=== PATIENT | male | born 1960 | race Caucasian/White ===

== ENCOUNTER 2020-10-05 16:22 | Inpatient (IN) | payer OTHER ==
[2020-10-05 16:57] VITALS: BMI 25.1
[2020-10-05] MEDS ORDERED: MAG HYDROX/AL HYDROX/SIMETH 30 ML UNIT-DOSE CUP PO PRN (17:27)
[2020-10-05] MEDS ORDERED: chlordiazePOXIDE HCL 25 MG CAPSULE PO PRN (17:27)
[2020-10-05] MEDS ORDERED: BISMUTH SUBSALICYLATE 524 MG/30 ML UD PO PRN (17:27)
[2020-10-05] MEDS ORDERED: METHOCARBAMOL 500 MG TABLET PO PRN (17:27)
[2020-10-05] MEDS ORDERED: MENTHOL/PHENOL 1 EACH UD MM PRN (17:27)
[2020-10-05] MEDS ORDERED: ONDANSETRON *ODT* 4 MG TABLET SL PRN (17:27)
[2020-10-05] MEDS ORDERED: MAGNESIUM HYDROX 2400MG/30ML ORAL SUSPENSION 30 ML CUP PO PRN (17:27)
[2020-10-05] MEDS ORDERED: ACETAMINOPHEN 325 MG TABLET (FP) PO PRN ×2 (17:27)
[2020-10-05] MEDS ORDERED: NICOTINE POLACRILEX 2 MG GUM BUC PRN (17:27)
[2020-10-05] MEDS ORDERED: IBUPROFEN 400 MG TABLET (FP) PO PRN (17:27)
[2020-10-05] MEDS ORDERED: MAGNESIUM CITRATE 300 ML BOTTLE PO PRN (17:27)
[2020-10-05] MEDS: chlordiazePOXIDE HCL 25 MG CAPSULE PO SCH ×2 (19:15→22:36)
[2020-10-05] MEDS: hydrOXYzine PAMOATE 25 MG CAPSULE (FP) PO SCH ×2 (19:32→22:36)
[2020-10-05] MEDS: THIAMINE HCL 100 MG TABLET (FP) PO SCH (22:36)
[2020-10-05] MEDS: MELATONIN 5 MG TABLETS PO SCH (23:39)
[2020-10-05] MEDS: INSULIN SLIDING SCALE (NOVOLOG) 1 VIAL SQ SCH (23:40)
[2020-10-06] MEDS: hydrOXYzine PAMOATE 25 MG CAPSULE (FP) PO SCH ×5 (05:31→23:15)
[2020-10-06] MEDS: chlordiazePOXIDE HCL 25 MG CAPSULE PO SCH ×4 (05:31→22:28)
[2020-10-06] MEDS: INSULIN SLIDING SCALE (NOVOLOG) 1 VIAL SQ SCH ×4 (06:14→22:33)
[2020-10-06] MEDS: METHADONE HCL 40 MG DISPERSABLE TABLET PO SCH (10:28)
[2020-10-06] MEDS: PRENATAL VITAMINS W/ FOLIC ACID TABLET (FP) PO SCH (10:29)
[2020-10-06 10:39] LABS: HEMATOCRIT 42.5 % (35.4-49); HEMOGLOBIN 14.3 GM/dL (11.7-16.9); MCH 31.7 pg (25.7-33.7); MCHC 33.6 g/dl (32.0-35.9); MEAN CELL VOLUME 94.2 fl (80-96); MEAN PLT VOLUME 9.3 fl (7.5-11.1); PLATELET COUNT 180 K/MM3 (134-434); RBC 4.51 M/mm3 (4.00-5.60); RDW 13.3 % (11.9-15.9); WHITE BLOOD COUNT 5.5 K/mm3 (4.0-10.0)
[2020-10-06 10:44] LABS: TOT PROT 7.7 g/dl (6.4-8.2)
[2020-10-06 10:46] LABS: CREATININE 0.8 mg/dL (0.55-1.3)
[2020-10-06 10:48] LABS: ALBUMIN 3.3 g/dl (3.4-5.0); BILIRUBIN,TOTAL 0.6 mg/dL (0.2-1); BLOOD UREA NITROGEN 15.1 mg/dL (7-18); CALCIUM 9.1 mg/dL (8.5-10.1)
[2020-10-06] MEDS ORDERED: INSULIN (NOVOLOG) ASPART 100 UNITS/ML 10ML VIAL ONE ×2 (17:44→22:35)
[2020-10-06] MEDS: THIAMINE HCL 100 MG TABLET (FP) PO SCH (22:28)
[2020-10-06] MEDS: MELATONIN 5 MG TABLETS PO SCH (23:15)
[2020-10-07] MEDS: chlordiazePOXIDE HCL 25 MG CAPSULE PO SCH ×4 (05:26→22:15)
[2020-10-07] MEDS: hydrOXYzine PAMOATE 25 MG CAPSULE (FP) PO SCH ×5 (05:26→22:17)
[2020-10-07] MEDS: METHADONE HCL 40 MG DISPERSABLE TABLET PO SCH (05:26)
[2020-10-07] MEDS: INSULIN SLIDING SCALE (NOVOLOG) 1 VIAL SQ SCH ×4 (08:34→22:17)
[2020-10-07] MEDS: PRENATAL VITAMINS W/ FOLIC ACID TABLET (FP) PO SCH (10:19)
[2020-10-07] MEDS ORDERED: INSULIN (NOVOLOG) ASPART 100 UNITS/ML 10ML VIAL ONE ×2 (12:02→18:09)
[2020-10-07] MEDS ORDERED: AMMONIUM LACTATE 12% LOTION 225 GM BOTTLE TP PRN (14:35)
[2020-10-07] MEDS: VITAMINS A AND D TOPICAL OINTMENT 60 GM TUBE TP SCH ×2 (19:19→23:30)
[2020-10-07] MEDS: THIAMINE HCL 100 MG TABLET (FP) PO SCH (22:17)
[2020-10-07] MEDS: MELATONIN 5 MG TABLETS PO SCH (22:17)
[2020-10-08] MEDS ORDERED: chlordiazePOXIDE HCL 10 MG CAPSULE PO PRN
[2020-10-08] MEDS: hydrOXYzine PAMOATE 25 MG CAPSULE (FP) PO SCH ×5 (05:18→22:12)
[2020-10-08] MEDS: chlordiazePOXIDE HCL 10 MG CAPSULE PO SCH ×4 (05:18→22:12)
[2020-10-08] MEDS: METHADONE HCL 40 MG DISPERSABLE TABLET PO SCH (05:18)
[2020-10-08] MEDS: VITAMINS A AND D TOPICAL OINTMENT 60 GM TUBE TP SCH ×4 (08:01→23:52)
[2020-10-08] MEDS: INSULIN SLIDING SCALE (NOVOLOG) 1 VIAL SQ SCH ×4 (08:01→22:12)
[2020-10-08 10:09] LABS: SARS-CoV-2 NAA Not Detected (Not Detected)
[2020-10-08] MEDS: PRENATAL VITAMINS W/ FOLIC ACID TABLET (FP) PO SCH (10:34)
[2020-10-08] MEDS ORDERED: LISINOPRIL 5 MG TABLET PO SCH (11:00)
[2020-10-08] MEDS ORDERED: INSULIN (NOVOLOG) ASPART 100 UNITS/ML 10ML VIAL ONE ×3 (11:05→22:46)
[2020-10-08] MEDS: MELATONIN 5 MG TABLETS PO SCH (22:12)
[2020-10-08] MEDS: THIAMINE HCL 100 MG TABLET (FP) PO SCH (22:12)
[2020-10-09] MEDS ORDERED: chlordiazePOXIDE HCL 10 MG CAPSULE PO SCH (05:00)
[2020-10-09] MEDS: hydrOXYzine PAMOATE 25 MG CAPSULE (FP) PO SCH (06:06)
[2020-10-09] MEDS: METHADONE HCL 40 MG DISPERSABLE TABLET PO SCH (06:06)
[2020-10-09] MEDS: VITAMINS A AND D TOPICAL OINTMENT 60 GM TUBE TP SCH (06:07)
[2020-10-09] MEDS: INSULIN SLIDING SCALE (NOVOLOG) 1 VIAL SQ SCH (06:07)
[2020-10-09 07:07] VITALS: TEMP 97.5
[2020-10-09 09:37] VITALS: BP 159/59; PULSE 93
[2020-10-10] MEDS ORDERED: chlordiazePOXIDE HCL 10 MG CAPSULE PO ONE (05:00)
== END 2020-10-09 09:55 | disposition home or self-care (01) | DRG 773 ==
LOC: YASAS 16:22 → Y6N 17:50
PROVIDERS: ADMIT Allergy & Immunology; ATTEND Allergy & Immunology
PROC: HZ2ZZZZ Detoxification Services for Substance Abuse Treatment (ICD-10-PCS; principal; 2020-10-05)
DX: F10.230 Alcohol dependence with withdrawal, uncomplicated (principal); F11.20 Opioid dependence, uncomplicated; F14.20 Cocaine dependence, uncomplicated; F17.210 Nicotine dependence, cigarettes, uncomplicated; F19.24 Other psychoactive substance dependence with psychoactive substance-induced mood disorder; F41.9 Anxiety disorder, unspecified; Z21 Asymptomatic human immunodeficiency virus [HIV] infection status; E78.1 Pure hyperglyceridemia; E11.9 Type 2 diabetes mellitus without complications; Z79.84 Long term (current) use of oral hypoglycemic drugs; I10 Essential (primary) hypertension; J44.9 Chronic obstructive pulmonary disease, unspecified; K29.70 Gastritis, unspecified, without bleeding; K21.9 Gastro-esophageal reflux disease without esophagitis; Z86.73 Personal history of transient ischemic attack (TIA), and cerebral infarction without residual deficits; Z87.01 Personal history of pneumonia (recurrent); Z59.0 Homelessness
CPT/HCPCS: 36415; 80053; 82962; 85027; 86780; 93005; 93010; C9803; U0003; U0005